=== PATIENT | female | born 1945 | race Caucasian/White ===

== ENCOUNTER 2022-02-07 16:02 | Inpatient (IN) | payer OTHER, MEDICAID ==
[~2022-02-07] VITALS: Ht 152.4 cm; Wt 72.6 kg
[~2022-02-07 16:02] MED LIST: AMLO2.5T2 PO; CALC0.258 PO; FAMO40TA71 PO; FERR-57 PO; GABA-531 PO; INSU100V26 SUBCUT; INSU100V9 SUBCUT; ISOS30TA85 PO; LIP40 PO; LOSA50TA3 PO; METO-290 PO; OMEP40CA20 PO; TOLT4CAP PO
[2022-02-07 16:18] VITALS: BP_SYST 90
--- NOTE | 2022-02-07 16:18 | NUR ---
Patient to ER bed 4 to gown for evaluation. Side rails up.
--- NOTE | 2022-02-07 16:36 | NUR ---
Patient AAOx4 from home c/o hypotension, increased weakness, and right sided ear and cheek pain. pt has history of CVA about 1 month ago. equal pharmacy aide bilaterally. no facial droop noted. speaks occitan w/ family at bedside to translate. denies any SOB or CP. denies any N/V/D.
--- NOTE | 2022-02-07 16:40 | NUR ---
Dr Perez evaluating patient at bedside
[2022-02-07 17:04] LABS: BASOPHILS % (AUTO) 0.7 % (0.0-2.0); EOSINOPHILS # (AUTO) 0.1 K/uL (0.0-0.4); EOSINOPHILS % (AUTO) 1.7 % (0.0-4.0); HEMATOCRIT 31.9 % (36-48); HEMOGLOBIN 10.6 g/dL (12.0-16.0); LYMPHOCYTES # (AUTO) 1.2 K/uL (1.0-5.5); LYMPHOCYTES % (AUTO) 23.2 % (20.5-51.5); MEAN CORPUSCULAR HEMOGLOBIN 29 pg (27-31); MEAN CORPUSCULAR HGB CONC 33 % (32-36); MEAN CORPUSCULAR VOLUME 88 fL (79.0-98.0); MONOCYTES # (AUTO) 0.7 K/uL (0.0-1.0); MONOCYTES % (AUTO) 13.6 % (1.7-9.3); NEUTROPHILS # (AUTO) 3.2 K/uL (1.8-7.7); NEUTROPHILS % (AUTO) 60.8 % (40.0-70.0); PLATELET COUNT (AUTO) 162 K/uL (130-430); RED BLOOD CELL COUNT(AUTO) 3.63 MIL/uL (4.2-6.2); RED CELL DISTRIBUTION WIDTH 14.1 % (9.0-15.0); WHITE BLOOD COUNT (AUTO) 5.2 K/uL (4.8-10.8)
[2022-02-07 17:16] LABS: ANION GAP 11 (5-15); CALCIUM 8.3 mg/dL (8.4-11.0); CHLORIDE 99 mmol/L (98-107); CREATININE 2.09 mg/dL (0.55-1.30); GLUCOSE 295 mg/dL (70-99); SODIUM SERUM 137 mmol/L (136-145); UREA NITROGEN, BLOOD 27 mg/dL (8-21)
[2022-02-07 17:25] LABS: ALBUMIN 3.3 g/dL (3.4-4.8); ASPARTATE AMINOTRANSFERASE 11 U/L (10-37); TOTAL BILIRUBIN 0.4 mg/dL (0.0-1.0)
[2022-02-07] MEDS ORDERED: NEU300 PO (17:38)
[2022-02-07] MEDS ORDERED: ASPI-1393 PO (17:38)
[2022-02-07] MEDS ORDERED: PRO40 PO (17:38)
[2022-02-07] MEDS ORDERED: ESCI10TA PO (17:38)
[2022-02-07] MEDS ORDERED: COR12.5 PO (17:38)
[2022-02-07] MEDS ORDERED: ROSU10TA2 PO (17:38)
--- NOTE | 2022-02-07 17:38 | NUR ---
Medication reconciliation completed with information provided by SPOU[facility]. Any prior medication reconciliation on file was reviewed and corrected.
[2022-02-07 17:41] LABS: ALANINE AMINOTRANSFERASE 9 U/L (12-78)
--- NOTE | 2022-02-07 17:56 | NUR ---
Pt off the unit for CT
[2022-02-07] MEDS ORDERED: NACL 0.9% 1,000 ML IV ONE (18:00)
--- NOTE | 2022-02-07 18:20 | NUR ---
Pt returned from CT on stable condition, VSS, A&Ox4
--- NOTE | 2022-02-07 18:42 | NUR ---
Pt O2 87%, Pt placed on 2L NC, well tolerated, will cont to monitor.
[2022-02-07] MEDS ORDERED: NACL 0.9% 1,000 ML IV SCH (19:00)
[2022-02-07 19:01] LABS: BILIRUBIN,URINE 1+ (NEGATIVE); BLOOD, URINE NEGATIVE (NEGATIVE); COLOR,URINE YELLOW (YELLOW); GLUCOSE,URINE NEGATIVE (NEGATIVE); KETONES,URINE TRACE (NEGATIVE); LEUKOCYTE ESTERASE ,URINE NEGATIVE (NEGATIVE); NITRITE, URINE NEGATIVE (NEGATIVE); PH,URINE 5.5 (5.0-8.0); PROTEIN URINE 1+ (NEGATIVE); UROBILINOGEN,URINE 0.2 (0.2-1.0)
--- NOTE | 2022-02-07 19:11 | NUR ---
US at bedside
[2022-02-07 19:14] LABS: CLARITY/URINE SLIGHTLY HAZY (CLEAR)
[2022-02-07 19:16] LABS: BACTERIA,URINE FEW /HPF (None Seen); RBC,URINE 0-3 /HPF (0-3); WBC,URINE 0-3 /HPF (0-3)
[2022-02-07 19:17] LABS: MUCUS,URINE 1+ /LPF (None Seen)
--- NOTE | 2022-02-07 20:00 | NUR ---
ASSUMED CARE OF PT AT THIS TIME. PT RESTING. NO S/S OF DISTRESS NOTED. VSS. AT BEDSIDE AND CONCERNED WITH PT HAVING A NEUROLOGY APPOINTMENT 02/08/2022 WHICH HAS BEEN MADE FOR A MONTH AND DOES NOT WANT TO MISS THE APPOINTMENT. STATES IF PT DOESN'T HAVE A BLOOD CLOT HE WANTS TO TAKE HER HOME AND FOLLOW UP IN AM WITH NEURO APPT. DR. AMADOR AWARE. AWAITING ULTRASOUND RESULTS. WILL CONTINUE TO MONITOR.
--- NOTE | 2022-02-07 20:10 | NUR ---
Admit bed requested Patient will be admitted to care of . Admitted to TELE unit. Diagnosis HYPOTENSION Inpatient (Yes or No) YES Observation (Yes or No) NO Orientation concerns or request close to nursing station (Yes or No) NO Covid Status PENDING On vent or bipap NO Isolation requirements NO Needs a sitter NO From Home (Yes or if No enter name of facility) YES Requires Dialysis (Yes or No) NO Med Rec Completed (Yes of No) PENDING
[2022-02-07] MEDS ORDERED: CALC0.253 (20:15)
[2022-02-07] MEDS ORDERED: MV-M1TAB19 PO (20:15)
[2022-02-07] MEDS ORDERED: TRAZ-250 PO (20:15)
[2022-02-07] MEDS ORDERED: [UNRECOGNIZED DRUG - REMARK] (20:15)
--- NOTE | 2022-02-07 20:45 | NUR ---
Report given to Karla LEW
--- NOTE | 2022-02-07 21:00 | NUR ---
PT RESTING. AT BEDSIDE. AWAITING RESULTS. WILL CONTINUE TO MONITOR.
--- NOTE | 2022-02-07 21:45 | NUR ---
DR. AMADOR AT BEDSIDE FOR DISCUSSION OF RESULTS. PER , BECAUSE SHE DOES NOT HAVE A BLOOD CLOT. PT NEEDS TO BE HOME SO HE CAN TAKE HER TO NEURO APPT IN AM. DR. AMADOR EXPLAINS TO THE RISKS OF AMA UP TO AND INCLUDING . VERBALIZES FULL UNDERSTANDING. DR. AMADOR SIGNS AMA FORM AND PT WILL GO HOME.
[2022-02-07 21:49] VITALS: BP_SYST 142
--- NOTE | 2022-02-07 21:49 | NUR ---
Patient and agree to sign AMA form ER discussed with patient the results and treatment provided. Patient in stable condition. ID arm band removed. IV catheter removed intact and dressing applied, no active bleeding. Opportunity for questions provided and answered. All risks of AMA discussed up to and including .
== END 2022-02-07 21:49 | disposition left against medical advice (07) | DRG 315 ==
LOC: SED 16:02 → STU 18:53
PROVIDERS: ADMIT Student in an Organized Health Care Education/Training Program; ATTEND Student in an Organized Health Care Education/Training Program
DX: I95.9 Hypotension, unspecified (principal); N17.9 Acute kidney failure, unspecified; I10 Essential (primary) hypertension; E11.9 Type 2 diabetes mellitus without complications; Z20.822 Contact with and (suspected) exposure to COVID-19; Z53.29 Procedure and treatment not carried out because of patient's decision for other reasons; E78.00 Pure hypercholesterolemia, unspecified; Z79.82 Long term (current) use of aspirin; Z79.899 Other long term (current) drug therapy
CPT/HCPCS: 36415; 71045; 76376; 80053; 81000; 82550; 83605; 83880; 84484; 85025; 87040; 93005; 93970; 96360; 99285; G0378; J7030